=== PATIENT | female | born 1940 | race Caucasian/White ===

== ENCOUNTER → 2023-06-04 | Outpatient (CLI) | payer MEDICARE ==
[2023-06-04 22:39] VITALS: PULSE 64; RESP 16
[2023-06-04 23:00] VITALS: PULSE 60; RESP 20
[2023-06-04 23:30] VITALS: PULSE 60; RESP 20
[2023-06-05] VITALS (10 sets, daily range): PULSE 56–77; RESP 16–20
== END | disposition home or self-care (01) ==
LOC: SLP 19:55
PROVIDERS: ATTEND Student in an Organized Health Care Education/Training Program
DX: G47.33 Obstructive sleep apnea (adult) (pediatric) (principal)
CPT/HCPCS: 95810

== ENCOUNTER → 2023-06-07 | Outpatient (CLI) | payer MEDICARE ==
[2023-06-07] VITALS (7 sets, daily range): PULSE 50–58; RESP 18–26
[2023-06-08] VITALS (15 sets, daily range): PULSE 49–59; RESP 11–27
== END | disposition home or self-care (01) ==
LOC: SLP 19:45 → EDUNIT# 06-20 20:30
PROVIDERS: ATTEND Student in an Organized Health Care Education/Training Program
DX: G47.33 Obstructive sleep apnea (adult) (pediatric) (principal)
CPT/HCPCS: 95811

== ENCOUNTER → 2024-07-03 | Outpatient (CLI) | payer MEDICARE ==
[~2024-07-03] MED LIST: ATOR40TA71; LEVE500T19; MINO100C6 PO; SEMA1PEN3 SQ
== END | disposition home or self-care (01) ==
LOC: LAB 11:13
PROVIDERS: ATTEND Internal Medicine Critical Care Medicine
DX: Z53.9 Procedure and treatment not carried out, unspecified reason (principal); R60.0 Localized edema

== ENCOUNTER → 2024-07-03 | Outpatient (CLI) | payer MEDICARE ==
[~2024-07-03] VITALS: Ht 160 cm; Wt 93.8 kg
[2024-07-03 11:47] VITALS: BP 165/68; PULSE 71; RESP 19; TEMP 98.2
[2024-07-03 12:08] LABS: BASOPHILS # (AUTO) 0.05 K/uL (0.00-0.20); BASOPHILS % (AUTO) 0.5 % (0.0-5.0); EOSINOPHILS # (AUTO) 0.24 K/uL (0.00-0.70); EOSINOPHILS % (AUTO) 2.2 % (0.0-8.0); HEMATOCRIT 39.1 % (36-48); IMMATURE GRANULOCYTE ABSOLUTE 0.09 K/uL (0-1); LYMPHOCYTES # (AUTO) 1.2 K/uL (1.0-4.8); MEAN CORPUSCULAR HEMOGLOBIN 31.8 pg (27.0-33.0); MEAN CORPUSCULAR HGB CONC 32.5 g/dL (32.0-36.0); MEAN CORPUSCULAR VOLUME 97.8 fL (79-99); MONOCYTES # (AUTO) 0.6 K/uL (0.1-1.0); MONOCYTES % (AUTO) 5.5 % (3.0-13.0); NEUTROPHILS # (AUTO) 8.7 K/uL (1.8-7.7); PLATELET COUNT (AUTO) 170 K/uL (130-400); RED CELL DISTRIBUTION WIDTH 13.3 % (11.0-15.5); WHITE BLOOD COUNT (AUTO) 10.8 K/uL (4.8-10.8)
[2024-07-03 12:25] LABS: CREATININE 1.2 mg/dL (0.5-1.0); POTASSIUM 3.6 mmol/L (3.5-5.1); TOTAL PROTEIN, SERUM 7.1 g/dL (6.0-8.3)
[2024-07-03 12:37] LABS: B-TYPE NATRIURETIC PEPTIDE 231 pg/mL (0-100)
== END ==
LOC: EDSTATUS 11:00 → DAH 11:07
PROVIDERS: ATTEND Internal Medicine Cardiovascular Disease
DX: Z01.818 Encounter for other preprocedural examination (principal); I48.19 Other persistent atrial fibrillation; Z79.899 Other long term (current) drug therapy
CPT/HCPCS: 36415; 80053; 83880; 85025

== ENCOUNTER 2024-08-02 08:55 | Day surgery (SDC) | payer MEDICARE ==
[2024-07-30 08:36] LABS: BASOPHILS # (AUTO) 0.05 K/uL (0.00-0.20); BASOPHILS % (AUTO) 0.6 % (0.0-5.0); EOSINOPHILS # (AUTO) 0.25 K/uL (0.00-0.70); EOSINOPHILS % (AUTO) 3.1 % (0.0-8.0); HEMATOCRIT 39.5 % (36-48); IMMATURE GRANULOCYTE ABSOLUTE 0.05 K/uL (0-1); LYMPHOCYTES # (AUTO) 1.5 K/uL (1.0-4.8); LYMPHOCYTES % (AUTO) 19.3 % (21.0-51.0); MEAN CORPUSCULAR HEMOGLOBIN 31.2 pg (27.0-33.0); MEAN CORPUSCULAR HGB CONC 32.4 g/dL (32.0-36.0); MEAN CORPUSCULAR VOLUME 96.3 fL (79-99); MONOCYTES # (AUTO) 0.7 K/uL (0.1-1.0); MONOCYTES % (AUTO) 8.1 % (3.0-13.0); NEUTROPHILS # (AUTO) 5.4 K/uL (1.8-7.7); NEUTROPHILS % (AUTO) 68.3 % (40.0-77.0); PLATELET COUNT (AUTO) 168 K/uL (130-400); RED CELL DISTRIBUTION WIDTH 12.6 % (11.0-15.5)
[2024-07-30 08:44] LABS: CREATININE 1.5 mg/dL (0.5-1.0); POTASSIUM 3.6 mmol/L (3.5-5.1)
[2024-07-30 08:55] VITALS: BP 149/58; PULSE 74; RESP 18; TEMP 97.5
[~2024-08-02] VITALS: Ht 160 cm; Wt 93.6 kg
[~2024-08-02 08:55] MED LIST changes: +0.9%NACL 1000ML 1,000 ML IV SCH; +CETI10TA87 PO; +DRON400T7 PO; +FURO20TA4 PO; +LEVO50TA6 PO; -MINO100C6 PO; +RIVA20TA PO; -SEMA1PEN3 SQ
--- NOTE | 2024-08-02 09:45 | NUR ---
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 THIS FINDING GIVEN TO DR. VALVERDE WHOM SPOKE TO ME AND REP. OK TO DISCHARGE HOME CONTINUE ALL MEDICATIONS AND TO FOLLOW UP WITH HIM IN 2 WEEKS. THIS INFORMATION GIVEN TO PT. PROCEDURE CANCELLED PER DR. VALVERDE D/T PT BEING IN A NORMAL SINUS RHYTHM
--- NOTE | 2024-08-02 10:10 | EKG ---
[facility] Test Date: 2024-08-02 Test Time: 09:29:13 Pat Name: SAUL MCCABE Department: [facility] Room: [facility] Gender: F Rf Test Technician: [id number] : 1940 Requested By: MARIANO VALVERDE Order Number: [id number] Reading MD: Aditi Belcher Measurements Intervals [place] Rate: 63 P: 0 MS: 73 QRS: -74 QRSD: 126 T: 9 QT: 500 QTc: 511 Interpretive Statements Atrial-paced rhythm Nonspecific IVCD with LAD Compared to ECG 04/26/2024 14:40:40 Intraventricular conduction delay now present Atrial fibrillation no longer present Left anterior fascicular block no longer present Myocardial infarct finding no longer present Electronically Signed On 08-02-2024 10:58:07 CDT by Aditi Belcher Please click the below link to view image of tracing.
== END 2024-08-02 10:00 | disposition home or self-care (01) ==
LOC: DAH 08:55
PROVIDERS: ATTEND Internal Medicine Cardiovascular Disease
DX: I48.19 Other persistent atrial fibrillation (principal); I10 Essential (primary) hypertension; E11.9 Type 2 diabetes mellitus without complications; G47.33 Obstructive sleep apnea (adult) (pediatric); E78.5 Hyperlipidemia, unspecified; Z95.0 Presence of cardiac pacemaker; Z90.710 Acquired absence of both cervix and uterus; Z90.49 Acquired absence of other specified parts of digestive tract; Z98.42 Cataract extraction status, left eye; Z98.41 Cataract extraction status, right eye; Z79.01 Long term (current) use of anticoagulants; Z79.899 Other long term (current) drug therapy; Z53.8 Procedure and treatment not carried out for other reasons
CPT/HCPCS: 36415; 80048; 82948; 85025; 93005